=== PATIENT | female | born 1960 | race Caucasian/White ===

== ENCOUNTER 2018-03-17 15:25 | Emergency (ER) | payer OTHER ==
[2018-03-17 15:30] VITALS: BP 125/74; PULSE 77; TEMP 97.8; BMI 37.3
--- NOTE | 2018-03-17 16:33 | PDOC ---
History of Present Illness - General History Source: Patient Exam Limitations: No Limitations - History of Present Illness Initial Comments: 03/17/18 19:37 The patient is a 57 year old female with a significant past medical history of diabetes and hyperlipidemia who presents to the emergency department for evaluation of right lower quadrant pain. The patient reports a 1 week history of intermittent episodes of right lower quadrant pain. The patient describes the right lower quadrant pain as non-radiating and sharp in nature, ranked 8/10 in severity. The patient reports taking aleve liquid gel with slight alleviation to pain. The patient denies chest pain,change in appetite, shortness of breath, headache , and dizziness. Denies fevers, chills, nausea, vomiting, diarrhea, and constipation. Denies dysuria, frequency, urgency, and hematuria. Allergies: NKA Past surgical history: Hysterectomy Social history: No reported cigarette, alcohol, or drug use. PCP: Dr. Ansari ([phone]) <La Osborn - Last Filed: 03/17/18 19:38> <Wang Duvall - Last Filed: 03/17/18 20:22> - General Chief Complaint: Pain, Acute Stated Complaint: ABD PAIN Time Seen by Provider: 03/17/18 16:32 Past History <La Osborn - Last Filed: 03/17/18 19:38> - Past Medical History COPD: No Diabetes: Yes - Immunization History Immunization Up to Date: Yes - Suicide/Smoking/Psychosocial Hx Smoking History: Never smoked Have you smoked in the past 12 months: No Hx Alcohol Use: No Drug/Substance Use Hx: No Substance Use Type: None <Wang Duvall - Last Filed: 03/17/18 20:22> - Past Medical History Allergies/Adverse Reactions: Allergies Allergy/AdvReac Type Severity Reaction Status Date / Time No Known Allergies Allergy Verified 03/17/18 15:26 Home Medications: Ambulatory Orders Cyclobenzaprine HCl [Flexeril -] 10 mg PO TID #21 tablet 03/16/16 Ibuprofen [Motrin -] 600 mg PO TID #21 tablet 03/16/16 Metformin HCl [Metformin HCl ER] 500 mg PO DAILY 03/16/16 Nitrofurantoin Monohyd/M-Cryst [Macrobid -] 100 mg PO BID #14 capsule 03/16/16 Review of Systems - Review of Systems Able to Perform ROS?: Yes Comments:: CONSTITUTIONAL: No fever, no chills, no fatigue EYES: No visual changes ENT: No ear pain, no sore throat CARDIOVASCULAR: No chest pain, no palpitations RESPIRATORY: No cough, no SOB GI: (+)Right lower quadrant abdominal pain. No nausea, no vomiting, no constipation, no diarrhea GENITOURINARY: No dysuria, no frequency, no hematuria MUSKULOSKELETAL: No backpain, no joint pain, no myalgias SKIN: No rash NEURO: No headache <La Osborn - Last Filed: 03/17/18 19:38> *Physical Exam - Vital Signs Last Vital Signs Temp Pulse Resp BP Pulse Ox 97.8 F 77 18 125/74 99 03/17/18 15:03/17/18 15:03/17/18 15:03/17/18 15:03/17/18 15:26 - Physical Exam Comments: CONSTITUTIONAL: Well-appearing; well-nourished; in no apparent distress HEAD: Normocephalic; atraumatic EYES: PERRL; EOM intact ENMT: External appears normal; normal oropharynx NECK: Supple; non-tender; no cervical lymphadenopathy CARD: Normal S1, S2; no murmurs, rubs, or gallops RESP: Normal chest excursion with respiration; breath sounds clear and equal bilaterally; no wheezes, rhonchi, or rales MUSC: No CVA tenderness ABD: (+) RLQ moderate tenderness to palpation. (+) RUQ mild tenderness to palpation. Soft, non-distended; no palpable organomegaly, no palpable hernias. EXT: Normal ROM in all four extremities; non-tender to palpation; distal pulses intact SKIN: Warm, dry, no rash NEURO: No focal neurological deficiencies. <La Osborn - Last Filed: 03/17/18 19:38> - Vital Signs Last Vital Signs Temp Pulse Resp BP Pulse Ox 97.8 F 77 18 125/74 99 03/17/18 15:26 03/17/18 15:26 03/17/18 15:03/17/18 15:03/17/18 15:26 <Wang Duvall - Last Filed: 03/17/18 20:22> ED Treatment Course - LABORATORY CBC & Chemistry Diagram: 03/17/18 17:26 03/17/18 17:26 - ADDITIONAL ORDERS Additional order review: Laboratory Results 03/17/18 03/17/18 17:26 17:26 Sodium 139 Potassium 4.3 Chloride 105 Carbon Dioxide 28 Anion Gap 6 L BUN 15 Creatinine 0.9 Creat Clearance w eGFR > 60 Random Glucose 208 H Calcium 8.7 Total Bilirubin 0.6 D AST 23 ALT 26 Alkaline Phosphatase 110 Total Protein 7.4 Albumin 3.9 Lipase 268 Urine Color Yellow Urine Appearance Clear Urine pH 5.0 Ur Specific [place] 1.022 Urine Protein Negative Urine Glucose (UA) 3+ H Urine Ketones Trace H Urine Blood Negative Urine Nitrite Negative Urine Bilirubin Negative Urine Urobilinogen Negative Ur Leukocyte Esterase Negative 03/17/18 17:26 RBC 5.05 MCV 86.4 MCHC 34.7 RDW 13.0 MPV 8.6 Neutrophils % 58.9 D Lymphocytes % 27.1 D Monocytes % 8.0 Eosinophils % 5.3 H D Basophils % 0.7 - Medications Given in the ED: ED Medications Discontinued Medications Generic Name Dose Route Start Last Admin Trade Name Rigoq PRN Reason Stop Dose Admin Acetaminophen 650 mg 03/17/18 16:42 03/17/18 17:52 Tylenol - PO 03/17/18 16:43 650 mg ONCE ONE Administration Sodium Chloride 500 mls @ 500 mls/hr 03/17/18 16:40 03/17/18 17:52 Normal Saline - IV 03/17/18 17:39 500 mls/hr ASDIR STA Administration <La Osborn - Last Filed: 03/17/18 19:38> - LABORATORY CBC & Chemistry Diagram: 03/17/18 17:26 03/17/18 17:26 <Wang Duvall - Last Filed: 03/17/18 20:22> Medical Decision Making - Medical Decision Making Plan: UA Labs CAT scan <La Osborn - Last Filed: 03/17/18 19:38> - Medical Decision Making 03/17/18 19:41 patient is a presents to the ER wit right-sided for the past associated nausea/ vomiting/diarrhea. in the ER, Patient is awake and alert, nontoxic-appearing, afebrile, hemodynamically stable. Physical exam reveals right upper quadrant and right lower quadrant tenderness to deep palpation, negative Irizarry's. CBC/ CMP/UA within normal limit. Glycosuria is noted. CT of abdomen and pelvis reveals cholelithiasis without evidence of cholecystitis and no evidence of appendicitis or diverticulitis. Patient tolerates by mouth. I suspect cholelithiasis without cholecystitis at this time. Patient will be discharged with outpatient surgical follow-up further evaluation. 03/17/18 20:20 Patient reassessed. Patient is resting comfortably, pain free, tolerates by mouth. Repeat abdominal exam reveals no significant focal tenderness. Patient advised of the CT and lab findings and will be discharged with outpatient surgical follow-up. <Wang Duvall - Last Filed: 03/17/18 20:22> *DC/Admit/Observation/Transfer - Attestations Scribe Attestion: Documentation prepared by La Osborn, acting as medical supply technician for Wang Duvall MD. <La Osborn - Last Filed: 03/17/18 19:38> - Attestations Physician Attestion: 03/17/18 19:33 The documentation was prepared by the scribe under my direct supervision. I have reviewed the documentation which correctly represents the findings, medical decision-making and critical action taken by me. <Wang Duvall - Last Filed: 03/17/18 20:22> Diagnosis at time of Disposition: Cholelithiasis Qualifiers: Cholelithiasis location: other site Biliary obstruction: with biliary obstruction Qualified Code(s): K80.81 - Other cholelithiasis with obstruction - Discharge Dispostion Disposition: HOME Condition at time of disposition: Stable - Referrals Referrals: Laurel Palma MD [Primary Care Provider] - Sj Rowley MD [Staff Physician] - - Patient Instructions Printed Discharge Instructions: DI for Gallstones Print Language: ESTONIAN - Post Discharge Activity
[2018-03-17] MEDS ORDERED: SODIUM CHLORIDE 500 ML IV STA (16:40)
[2018-03-17] MEDS ORDERED: ACETAMINOPHEN 325 MG TABLET (FP) PO ONE (16:42)
[2018-03-17] MEDS ORDERED: ACETAMINOPHEN 325 MG TABLET (FP) ONE (17:50)
[2018-03-17 18:01] LABS: BASO % 0.7 % (0-2.0); EOS % 5.3 % (0-4.5); HEMATOCRIT 43.6 % (32.4-45.2); HEMOGLOBIN 15.1 GM/dL (10.7-15.3); LYMPH % 27.1 % (8-40); MCHC 34.7 g/dl (32.0-36.0); MEAN CELL VOLUME 86.4 fl (80-96); MEAN PLT VOLUME 8.6 fl (7.5-11.1); NEUT % 58.9 % (42.8-82.8); PLATELET COUNT 179 K/MM3 (134-434); RBC 5.05 M/mm3 (3.60-5.2); WHITE BLOOD COUNT 6.3 K/mm3 (4.0-10.0)
[2018-03-17 18:06] LABS: URINE APPEARANCE CLEAR; URINE BILIRUBIN NEGATIVE (<2.0 mg/dL); URINE COLOR YELLOW; URINE GLUCOSE (UA) 3+ (NEGATIVE); URINE KETONE TRACE (NEGATIVE); URINE LEUK ESTERASE NEGATIVE (NEGATIVE); URINE NITRITE NEGATIVE (NEGATIVE); URINE PROTEIN NEGATIVE (NEGATIVE); URINE UROBILINOGEN NEGATIVE mg/dL (0.2-1.0)
[2018-03-17 19:12] LABS: ALBUMIN 3.9 g/dl (3.4-5.0); ANION GAP 6 (8-16); BILIRUBIN,TOTAL 0.6 mg/dL (0.2-1.0); BLOOD UREA NITROGEN 15 mg/dL (7-18); CALCIUM 8.7 mg/dL (8.5-10.1); CHLORIDE 105 mmol/L (98-107); CO2 28 mmol/L (21-32); CREATININE 0.9 mg/dL (0.55-1.02); GLUCOSE,RANDOM 208 mg/dL (74-106); POTASSIUM 4.3 mmol/L (3.5-5.1); SGOT/AST 23 U/L (15-37); SGPT/ALT 26 U/L (12-78); SODIUM 139 mmol/L (136-145); TOT PROT 7.4 g/dl (6.4-8.2)
[2018-03-17 19:13] LABS: ALK PHOS 110 U/L (45-117)
[2018-03-17 19:25] LABS: LIPASE 268 U/L (73-393)
== END 2018-03-17 20:30 | disposition home or self-care (01) ==
LOC: JER 15:25
PROC: 3E0337Z Introduction of Electrolytic and Water Balance Substance into Peripheral Vein, Percutaneous Approach (ICD-10-PCS; principal; 2018-03-17)
DX: K80.81 Other cholelithiasis with obstruction (principal)
CPT/HCPCS: 36415; 74176-TC; 80053; 81003; 83690; 85025; 87086; 96360; 99281-25

== ENCOUNTER 2019-11-10 15:00 | Emergency (ER) | payer OTHER ==
[2019-11-10 15:17] VITALS: BP 133/74; PULSE 87; TEMP 98.8; BMI 79.4
[2019-11-10] MEDS ORDERED: KETOROLAC TROMETHAMINE 30 MG/1 ML VIAL IM ONE (15:52)
[2019-11-10] MEDS ORDERED: KETOROLAC TROMETHAMINE 30 MG/1 ML VIAL ONE (16:04)
--- NOTE | 2019-11-10 16:38 | PDOC ---
History of Present Illness - General Chief Complaint: Injury Stated Complaint: FALL Time Seen by Provider: 11/10/19 15:41 - History of Present Illness Initial Comments: 11/10/19 16:35 CHIEF COMPLAINT: Pain to R shoulder HISTORY OF PRESENT ILLNESS: 59 yo F presents to [facility] with pain to R shoulder x 2 days. Patient reports falling into a wall while groggy in the morning yesterday and has pain to her R shoulder since. Patient reports hitting the wall with her R shoulder and then catching her self with both her arms. Patient c/o of pain to b/l upper arms with flexion and pain to R shoulder with extension. No recent travel or sick contacts. PAST MEDICAL HISTORY: Denies past medical history FAMILY HISTORY: Denies SOCIAL HISTORY: Denies tobacco, alcohol, illicit drug use. SURGICAL HISTORY: Denies ALLERGIES: No known drug allergies REVIEW OF SYSTEMS General/Constitutional: Denies fever or chills. Denies weakness, weight change. HEENT: Denies change in vision. Denies ear pain or discharge. Denies sore throat. Cardiovascular: Denies chest pain or shortness of breath. Respiratory: Denies cough, wheezing, or hemoptysis. Gastrointestinal: Denies nausea, vomiting, diarrhea or constipation. Denies rectal bleeding. Genitourinary: Denies dysuria, frequency, or change in urination. Musculoskeletal: Pain to R shoulder and b/l arms. Skin and breasts: Denies rash or easy bruising. Neurologic: Denies headache, vertigo, loss of consciousness, or loss of sensation. Psychiatric: Denies depression or anxiety. PHYSICAL EXAM General Appearance: Well-appearing, appropriately dressed. No apparent distress , no intoxication. HEENT: EOMI, PERRLA, normal ENT inspection, normal voice, TMs normal, pharynx normal. No conjunctival pallor. No photophobia, scleral icterus. Neck: Supple. Trachea midline. No tenderness, rigidity, carotid bruit, stridor , lymphadenopathy, or thyromegaly. Respiratory/Chest: Lungs CTAB. No shortness of breath, chest tenderness, respiratory distress, accessory muscle use. No crackles, rales, rhonchi, stridor , wheezing, dullness Cardiovascular: RRR. S1, S2. No JVD, murmur, bradycardia, tachycardia. Vascular Pulses: Dorsalis-Pedis (R): 2+, Dorsalis-Pedis (L): 2+ Gastrointestinal/Abdominal: Normal bowel sounds. Abdomen soft, non-distended. No tenderness or rebound tenderness. No organomegaly, pulsatile mass, guarding , hernia, hepatomegaly, splenomegaly. Lymphatic: No adenopathy, tenderness. Musculoskeletal/Extremities: +Neer/Hawkin's ro R shoulder, TTP to b/l bicep insertion point with full ROM b/l arms, wrist, and fingers. Normal inspection. FROM of all extremities, normal capillary refill. Pelvis Stable. No CVA tenderness. No tenderness to extremities, pedal edema, swelling, erythema or deformity. Integumentary: Appropriate color, dry, warm. 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 Fully oriented, alert. Appropriate mood/affect. Motor strength 5/5. No appreciable EOM palsy, facial droop or sensory deficit. Past History - Past Medical History Allergies/Adverse Reactions: Allergies Allergy/AdvReac Type Severity Reaction Status Date / Time No Known Allergies Allergy Verified 03/17/18 15:26 Home Medications: Ambulatory Orders metFORMIN HCL [Metformin ER Osmotic] 500 mg PO DAILY 03/16/16 Ibuprofen 600 mg PO TID #30 tablet 11/10/19 Ibuprofen [Motrin -] 600 mg PO PRN 11/10/19 COPD: No Diabetes: Yes Hypercholesterolemia: No Lung CA: No - Immunization History Immunization Up to Date: Yes - Psycho Social/Smoking Cessation Hx Smoking History: Never smoked Have you smoked in the past 12 months: No Information on smoking cessation initiated: No Hx Alcohol Use: No Drug/Substance Use Hx: No Substance Use Type: None *Physical Exam - Vital Signs Last Vital Signs Temp Pulse Resp BP Pulse Ox 98.8 F 87 16 133/74 97 11/10/19 15:13 11/10/19 15:13 11/10/19 15:13 11/10/19 15:13 11/10/19 15:13 ED Treatment Course - RADIOLOGY Radiology Studies Ordered: Category Date Time Status SHOULDER-RIGHT [RAD] Stat Radiology 11/10/19 15:54 Ordered - Medications Given in the ED: ED Medications Discontinued Medications Generic Name Dose Route Start Last Admin Trade Name Freq PRN Reason Stop Dose Admin Ketorolac Tromethamine 30 mg 11/10/19 15:52 11/10/19 16:07 Toradol Injection - IM 11/10/19 15:53 30 mg ONCE ONE Administration Medical Decision Making - Medical Decision Making 11/10/19 16:37 59 yo F [facility] with pain to R shoulder x 2 days. -Shoulder x-ray NSAIDS Discharge - Discharge Information Problems reviewed: Yes Clinical Impression/Diagnosis: Shoulder pain, right Qualifiers: Chronicity: acute Qualified Code(s): M25.511 - Pain in right shoulder Condition: Stable Disposition: HOME - Admission No - Additional Discharge Information Prescriptions: Ibuprofen 600 mg PO TID #30 tablet - Follow up/Referral Referrals: Juliocesar Jean MD [Staff Physician] - José Miguel Kincaid MD [Staff Physician] - - Patient Discharge Instructions Patient Printed Discharge Instructions: DI for Shoulder Pain Additional Instructions: Please take medications as prescribed. Follow-up with orthopedics within the next week for continued evaluation of your shoulder pain. If you develop any new or worsening symptoms, please return to the ER. - Post Discharge Activity
== END 2019-11-10 17:29 | disposition home or self-care (01) ==
LOC: JERFT 15:00
PROC: 3E0233Z Introduction of Anti-inflammatory into Muscle, Percutaneous Approach (ICD-10-PCS; principal; 2019-11-10)
DX: S49.81XA Other specified injuries of right shoulder and upper arm, initial encounter (principal); M25.511 Pain in right shoulder; W01.198A Fall on same level from slipping, tripping and stumbling with subsequent striking against other object, initial encounter; Y93.89 Activity, other specified; Y92.89 Other specified places as the place of occurrence of the external cause; Y99.8 Other external cause status; E11.29 Type 2 diabetes mellitus with other diabetic kidney complication; Z79.84 Long term (current) use of oral hypoglycemic drugs
CPT/HCPCS: 73030-TC-RT-FY; 96372; 99281-25

== ENCOUNTER 2021-02-09 12:46 | Emergency (ER) | payer OTHER ==
[2021-02-09 12:56] VITALS: BP 132/76; PULSE 82; TEMP 98.2; BMI 34.1
[2021-02-09] MEDS ORDERED: ACETAMINOPHEN 500 MG TABLET (FP) PO ONE (13:22)
[2021-02-09] MEDS ORDERED: ACETAMINOPHEN 500 MG TABLET (FP) ONE (13:34)
== END 2021-02-09 14:55 | disposition home or self-care (01) ==
LOC: JERFT 12:46 → JER 12:46 → JERFT 14:55
DX: M25.551 Pain in right hip (principal); M25.561 Pain in right knee
CPT/HCPCS: 73523-TC-FY; 73562-TC-RT-FY; 99284-25